=== PATIENT | male | born 1970 | race Two or more races ===

== ENCOUNTER 2019-11-18 06:20 | Day surgery (SDC) | payer OTHER ==
[~2019-11-18 06:20] MED LIST: BUTALB-ASPIRIN1 EACH PO
== END 2019-11-18 12:45 | disposition home or self-care (01) ==
LOC: CIR.AMB 06:20
PROVIDERS: ATTEND Orthopaedic Surgery
DX: M75.121 Complete rotator cuff tear or rupture of right shoulder, not specified as traumatic (principal); M75.21 Bicipital tendinitis, right shoulder; M75.41 Impingement syndrome of right shoulder; Z20.828 Contact with and (suspected) exposure to other viral communicable diseases